=== PATIENT | male | born 1970 | race Caucasian/White ===

== ENCOUNTER 2019-06-12 13:41 | Emergency (ER) | payer OTHER ==
[2019-06-12 13:56] VITALS: BP 156/102; PULSE 93; RESP 18; TEMP 97.6
[2019-06-12] MEDS ORDERED: PENICILLIN VK 500MG STARTER 4 TAB BTL PO STA (14:24)
--- NOTE | 2019-06-12 14:25 | ED ---
ENT HPI - General Chief complaint: Dental/Oral Stated complaint: patient states sinus issues Time Seen by Provider: 06/12/19 14:04 Source: patient Mode of arrival: ambulatory Limitations: no limitations - History of Present Illness Initial comments: 48-year-old male presenting today for chief complaint of bad breath, felt taste in mouth x 1 week. Patient states that he has poor dentition overall is attempting to find a dentist, patient took a month ago he had an abscess is placed on antibiotics. He states he eventually had the tooth extracted he st ates he does not pain in the tooth any longer. Recently the taste in his mouth is without breath appear similar to when he had a previous abscess. Patient denies a swelling below tongue of the neck doesn't difficulty breathing swelling fevers or general malaise. Patient states he was concerned he was developing infection and thus prsented to the ER, patient states he is also concerned may be at the odor is coming from his sinuses. Patient denies any sinus pain or pressure he states he has mild congestion. Patient states that he just was released from skilled nursing. ROS (-). Upon arrival patient appears well there is no signs of acute distress. BP elevated patient states he has medications, denies chest pain, SOB. - Related Data Previous Rx's Medication Instructions Recorded Penicillin V Potassium [Pen Vee K] 500 mg PO QID 7 Days #28 tablet 06/12/19 Allergies Allergy/AdvReac Type Severity Reaction Status Date / Time No Known Allergies Allergy Verified 06/12/19 13:56 Review of Systems ROS Statement: Those systems with pertinent positive or pertinent negative responses have been documented in the HPI. ROS Other: All systems not noted in ROS Statement are negative. Past Medical History Past Medical History: GERD/Reflux, Hyperlipidemia, Hypertension History of Any Multi-Drug Resistant Organisms: None Reported Past Surgical History: No Surgical Hx Reported Past Psychological History: Anxiety, Bipolar, Depression Smoking Status: Current some day smoker Past Alcohol Use History: None Reported Past Drug Use History: None Reported General Exam - General Exam Comments Initial Comments: General: The patient is awake and alert, in no distress, and does not appear acutely ill. Eye: +3 mm pupils are equal, round and reactive to light, extra-ocular m ovements are intact. No nystagmus. There is normal conjunctiva bilaterally. No signs of icterus. Ears, nose, mouth and throat: There are moist mucous membranes and no oral lesions. Patient's teeth are carious there is multiple missing teeth. She has healed area where it appears that tooth number 31 is, no dry socket, no pain to palpation, no area of fluctuance. No swelling below the tongue, or below the angle of the mandible. No trismus, tripoding or drooling Neck: The neck is supple, there is no tenderness or JVD. Musculoskeletal: Normal ROM, no tenderness. Strength 5/5. Sensation intact. Radial pulses equal bilaterally 2+. Neurological: A&O x 3. CN II-XII intact grossly, There are no obvious motor or sensory deficits. Coordination appears grossly intact. Speech is normal. Skin: Skin is warm and dry and no rashes or lesions are noted. Psychiatric: Cooperative, appropriate mood & affect, normal judgment. Limitations: no limitations Course Vital Signs 06/12/19 13:53 Temperature 97.6 F Pulse Rate 93 Respiratory 18 Rate Blood Pressure 156/102 O2 Sat by Pulse 97 Oximetry Medical Decision Making - Medical Decision Making 48-year-old male presents today for chief complaint of bad breath. Patient states that similar to when he had abscess to the past. Patient denies noting any specific areas where he feels an abscess or dental pain. Physical examination unremarkable aside from poor dentition overall with multiple carious teeth. No evidence of focalized abscess or tenderness. Percussion of specific tooth. Patient has no signs of Bobby angina he appears well without any other focalizing symptoms. Patient blood pressure noted to be elevated patient states he currently has blood pressure medication and has been stressed out he denies any chest pain shortness of breath like swelling decreased urine output headache dizziness or abdomina/back pain. At this time of discharge patient with Pen VK given history provider/poor dentition and dentist F/u. Patient is agreeable to this care plan discharge at this time discussed case with attending provider Dr. Ventura Disposition Clinical Impression: Bad breath, Dental caries Disposition: HOME SELF-CARE Condition: Good Instructions (If sedation given, give patient instructions): Toothache (ED) Additional Instructions: Please use medication as discussed. Please follow-up with family doctor in the next 2 days, recommend evaluation by a dentist. Please return to emergency room if the symptoms increase or worsen or for any other concerns. Prescriptions: Penicillin V Potassium [Pen Vee K] 500 mg PO QID 7 Days #28 tablet Is patient prescribed a controlled substance at d/c from ED?: No Referrals: None,Stated [Primary Care Provider] - 1-2 days Time of Disposition: 14:25
== END 2019-06-12 15:06 | disposition home or self-care (01) ==
LOC: EC 13:41
DX: K02.9 Dental caries, unspecified (principal); K00.7 Teething syndrome; I10 Essential (primary) hypertension; F17.200 Nicotine dependence, unspecified, uncomplicated
CPT/HCPCS: 99283

== ENCOUNTER 2020-09-13 12:19 | Inpatient (IN) | payer OTHER ==
--- NOTE | 2020-09-13 12:54 | ED ---
General Adult HPI - General Chief complaint: Chest Pain Stated complaint: Chest Pain/SOB Time Seen by Provider: 09/13/20 12:30 Source: patient, RN notes reviewed, old records reviewed Mode of arrival: wheelchair Limitations: no limitations - History of Present Illness Initial comments: This is a 50-year-old male with a past medical history significant for smoking high blood pressure and high cholesterol. Patient states she's had no cardiac history that he knows of. Patient denies any diabetes. Patient states the last 2-1/2 days she's had chest pain left-sided chest and he has also been significantly short of breath per patient states breathing does not seem to make the pain worse just been a constant discomfort. Patient states he also thinks he might a little upper abdominal pain but is not sure if that she is because his breathing somewhat harder than normal. Patient denies any fever chills or cough. Patient denies any vomiting or diarrhea. Patient denies any swelling to the legs or calf tenderness. - Related Data Previous Rx's Medication Instructions Recorded Penicillin V Potassium [Pen Vee K] 500 mg PO QID 7 Days #28 tablet 06/12/19 Allergies Allergy/AdvReac Type Severity Reaction Status Date / Time No Known Allergies Allergy Verified 09/13/20 12:33 Review of Systems ROS Statement: Those systems with pertinent positive or pertinent negative responses have been documented in the HPI. ROS Other: All systems not noted in ROS Statement are negative. Past Medical History Past Medical History: GERD/Reflux, Hyperlipidemia, Hypertension History of Any Multi-Drug Resistant Organisms: None Reported Past Surgical History: No Surgical Hx Reported Past Psychological History: Anxiety, Bipolar, Depression Smoking Status: Current every day smoker Past Alcohol Use History: None Reported Past Drug Use History: None Reported General Exam - General Exam Comments Initial Comments: GENERAL: Patient is well-developed and well-nourished. Patient is nontoxic and well- hydrated and is in mild distress. ENT: Neck is soft and supple. No significant lymphadenopathy is noted. Oropharynx is clear. Moist mucous membranes. Neck has full range of motion without eliciting any pain. EYES: The sclera were anicteric and conjunctiva were pink and moist. Extraocular movements were intact and pupils were equal round and reactive to light. Eyelids were unremarkable. PULMONARY: Unlabored respirations. Good breath sounds bilaterally. No audible rales rhonchi or wheezing was noted. CARDIOVASCULAR: There is a regular rate and rhythm without any murmurs gallops or rubs. No rashes or areas of tenderness be palpated ABDOMEN: Soft and nontender with normal bowel sounds. SKIN: Skin is clear with no lesions or rashes and otherwise unremarkable. NEUROLOGIC: Patient is alert and oriented x3. Cranial nerves II through XII are grossly intact. Motor and sensory are also intact. Normal speech, volume and content. Symmetrical smile. MUSCULOSKELETAL: Normal extremities with adequate strength and full range of motion. No lower extremity swelling or edema. No calf tenderness. LYMPHATICS: No significant lymphadenopathy is noted PSYCHIATRIC: Normal psychiatric evaluation. Limitations: no limitations Course Vital Signs 09/13/20 09/13/20 12:29 14:02 Temperature 97.9 F Pulse Rate 94 90 Respiratory 24 24 Rate Blood Pressure 144/101 143/107 O2 Sat by Pulse 97 99 Oximetry Medical Decision Making - Medical Decision Making EKG shows normal sinus rhythm at 80 bpm NV interval is 150 QRS is 90 QT interval 418 QTC is 505. Patient's EKG shows no ST segment elevation or depression. Chest x-ray shows acute pulmonary edema. I went back in and reevaluated the patient and asked about drug use he did admit to doing methamphetamine. Patient's d-dimer is elevated so I ordered a CAT scan of his chest. I spoke with Dr. Rick he agreed to admit the patient admitted the patient wrote admitting orders. - Lab Data Result diagrams: 09/13/20 12:59 09/13/20 12:59 Lab Results 09/13/20 09/13/20 09/13/20 Range/Units 12:59 12:59 12:59 WBC 11.0 H (3.8-10.6) k/uL RBC 5.00 (4.30-5.90) m/uL Hgb 15.5 (13.0-17.5) gm/dL Hct 45.2 (39.0-53.0) % MCV 90.4 (80.0-100.0) fL MCH 31.0 (25.0-35.0) pg MCHC 34.3 (31.0-37.0) g/dL RDW 13.7 (11.5-15.5) % Plt Count 345 (150-450) k/uL MPV 7.1 Neutrophils % 67 % Lymphocytes % 24 % Monocytes % 4 % Eosinophils % 3 % Basophils % 1 % Neutrophils # 7.3 (1.3-7.7) k/uL Lymphocytes # 2.7 (1.0-4.8) k/uL Monocytes # 0.5 (0-1.0) k/uL Eosinophils # 0.3 (0-0.7) k/uL Basophils # 0.1 (0-0.2) k/uL PT 9.9 (9.0-12.0) sec INR 0.9 (<1.2) APTT 23.4 (22.0-30.0) sec D-Dimer 0.97 H (<0.60) mg/L FEU Sodium 137 (137-145) mmol/L Potassium 4.9 (3.5-5.1) mmol/L Chloride 111 H (98-107) mmol/L Carbon Dioxide 18 L (22-30) mmol/L Anion Gap 8 mmol/L BUN 15 (9-20) mg/dL Creatinine 0.72 (0.66-1.25) mg/dL Est GFR (CKD-EPI)AfAm >90 (>60 ml/min/1.73 sqM) Est GFR (CKD-EPI)NonAf >90 (>60 ml/min/1.73 sqM) Glucose 129 H (74-99) mg/dL Plasma Lactic Acid Chavo (0.7-2.0) mmol/L Calcium 8.6 (8.4-10.2) mg/dL Magnesium 1.9 (1.6-2.3) mg/dL Total Bilirubin 0.5 (0.2-1.3) mg/dL AST 31 (17-59) U/L ALT 40 (4-49) U/L Alkaline Phosphatase 51 (38-126) U/L Troponin I (0.000-0.034) ng/mL NT-Pro-B Natriuret Pep pg/mL Total Protein 6.4 (6.3-8.2) g/dL Albumin 3.6 (3.5-5.0) g/dL Lipase 163 (23-300) U/L 09/13/20 09/13/20 09/13/20 Range/Units 12:59 12:59 12:59 WBC (3.8-10.6) k/uL RBC (4.30-5.90) m/uL Hgb (13.0-17.5) gm/dL Hct (39.0-53.0) % MCV (80.0-100.0) fL MCH (25.0-35.0) pg MCHC (31.0-37.0) g/dL RDW (11.5-15.5) % Plt Count (150-450) k/uL MPV Neutrophils % % Lymphocytes % % Monocytes % % Eosinophils % % Basophils % % Neutrophils # (1.3-7.7) k/uL Lymphocytes # (1.0-4.8) k/uL Monocytes # (0-1.0) k/uL Eosinophils # (0-0.7) k/uL Basophils # (0-0.2) k/uL PT (9.0-12.0) sec INR (<1.2) APTT (22.0-30.0) sec D-Dimer (<0.60) mg/L FEU Sodium (137-145) mmol/L Potassium (3.5-5.1) mmol/L Chloride (98-107) mmol/L Carbon Dioxide (22-30) mmol/L Anion Gap mmol/L BUN (9-20) mg/dL Creatinine (0.66-1.25) mg/dL Est GFR (CKD-EPI)AfAm (>60 ml/min/1.73 sqM) Est GFR (CKD-EPI)NonAf (>60 ml/min/1.73 sqM) Glucose (74-99) mg/dL Plasma Lactic Acid Chavo 1.3 (0.7-2.0) mmol/L Calcium (8.4-10.2) mg/dL Magnesium (1.6-2.3) mg/dL Total Bilirubin (0.2-1.3) mg/dL AST (17-59) U/L ALT (4-49) U/L Alkaline Phosphatase (38-126) U/L Troponin I <0.012 (0.000-0.034) ng/mL NT-Pro-B Natriuret Pep 4810 pg/mL Total Protein (6.3-8.2) g/dL Albumin (3.5-5.0) g/dL Lipase (23-300) U/L Critical Care Time Critical Care Time: Yes Total Critical Care Time: 35 Disposition Clinical Impression: Acute pulmonary edema, Methamphetamine abuse Disposition: ADMITTED IP TO THIS HOSP Referrals: Tom An MD [Primary Care Provider] - 1-2 days Time of Disposition: 14:25
[2020-09-13 13:10] LABS: Basophils # (A) 0.1 k/uL (0-0.2); Basophils % (A) 1 %; Eosinophils # (A) 0.3 k/uL (0-0.7); Eosinophils % (A) 3 %; HCT 45.2 % (39.0-53.0); HGB 15.5 gm/dL (13.0-17.5); Lymphocytes # (A) 2.7 k/uL (1.0-4.8); Lymphocytes % (A) 24 %; MCHC 34.3 g/dL (31.0-37.0); MCV 90.4 fL (80.0-100.0); Mean Platelet Volume 7.1; Monocytes # (A) 0.5 k/uL (0-1.0); Monocytes % (A) 4 %; Neutrophils # (A) 7.3 k/uL (1.3-7.7); Neutrophils % (A) 67 %; Platelet Count 345 k/uL (150-450); RDW 13.7 % (11.5-15.5)
[2020-09-13 13:23] LABS: African American GFR (CKD) >90 (>60 ml/min/1.73 sqM); Albumin 3.6 g/dL (3.5-5.0); Anion Gap 8 mmol/L; Carbon Dioxide 18 mmol/L (22-30); Chloride 111 mmol/L (98-107); Glucose 129 mg/dL (74-99); INR 0.9 (<1.2); Non-African American GFR(CKD) >90 (>60 ml/min/1.73 sqM); Partial Thromboplastin Time 23.4 sec (22.0-30.0); Prothrombin Time 9.9 sec (9.0-12.0); Sodium 137 mmol/L (137-145); Total Protein 6.4 g/dL (6.3-8.2)
[2020-09-13 13:24] LABS: ALT 40 U/L (4-49); Blood Urea Nitrogen 15 mg/dL (9-20); Calcium 8.6 mg/dL (8.4-10.2); Lipase 163 U/L (23-300); Total Bilirubin 0.5 mg/dL (0.2-1.3)
[2020-09-13 13:26] LABS: AST 31 U/L (17-59); Alkaline Phosphatase 51 U/L (38-126); Magnesium 1.9 mg/dL (1.6-2.3); Potassium 4.9 mmol/L (3.5-5.1)
[2020-09-13 13:36] LABS: D-Dimer 0.97 mg/L FEU (<0.60)
--- NOTE | 2020-09-13 13:41 | XR ---
EXAMINATION TYPE: XR chest 2V DATE OF EXAM: 09/13/2020 COMPARISON: Chest x-ray January 22, 2016 HISTORY: Shortness of breath TECHNIQUE: Frontal and lateral views of the chest are obtained. FINDINGS: The cardiac silhouette size is stable and upper limits of normal. New mild interstitial ed valentina. New central vascular congestion. New tiny bilateral pleural effusions. The osseous structures r emain intact. IMPRESSION: Findings consistent with CHF exacerbation and/or fluid overload state as detailed above.
[2020-09-13] MEDS ORDERED: FUROSEMIDE 10 MG/ML 4 ML VIAL IV STA (14:17)
[2020-09-13] MEDS ORDERED: NITROGLYCERIN OINT 1 INCH/GM PACKET TOPICAL STA (14:17)
[2020-09-13] MEDS: FUROSEMIDE 10 MG/ML 4 ML VIAL IV SCH ×2 (14:46→22:27)
--- NOTE | 2020-09-13 15:07 | CT ---
EXAMINATION TYPE: CT chest angio for PE DATE OF EXAM: 09/13/2020 COMPARISON: Same-day radiograph. HISTORY: PE suspected, elevated d-dimer CT DLP: 476.5 mGycm Automated exposure control for dose reduction was used. CONTRAST: CT Chest for pulmonary embolism performed with without and with IV Contrast, patient injected with 10 0 ml mL of Isovue 370. FINDINGS: LUNGS: There are mild to moderate patchy opacities in the bilateral lower lobes, otherwise minimal in volvement elsewhere. There are moderate bilateral pleural effusions. There is also mild interseptal t hickening, compatible with interstitial edema. No pneumothorax. The tracheobronchial tree is patent . MEDIASTINUM: There is satisfactory enhancement of the pulmonary artery and its branches, there is no CT evidence for pulmonary embolism. There are no greater than 1 cm hilar or mediastinal lymph nodes. No pericardial effusion is seen. Mild cardiomegaly. OTHER: No additional significant abnormality is seen. IMPRESSION: No acute PE. Mild to moderate patchy opacities predominantly in the bilateral frontal lobes and concerning for aty pical pneumonia. Moderate pleural effusions on the background of CHF.
[2020-09-13 15:27] LABS: Cocaine Screen,Urine Detected (NotDetected); Phencyclidine Screen,Urine Not Detected (NotDetected); Urn Cannabinoid Scrn Not Detected (NotDetected)
[2020-09-13 15:28] LABS: Amphetamine Screen,Urine Detected (NotDetected); Barbiturate Screen,Urine Not Detected (NotDetected); Benzodiazepines Screen,Urine Not Detected (NotDetected); Methadone Screen, Urine Not Detected (NotDetected); Opiate Screen,Urine Not Detected (NotDetected); Oxycodone Screen, Urine Not Detected (NotDetected); Tricyclic Antidepressant,Urine Not Detected (NotDetected)
[2020-09-13] MEDS ORDERED: IBUPROFEN 600 MG TAB PO PRN (18:47)
[2020-09-13] MEDS: NITROGLYCERIN OINT 1 INCH/GM PACKET TOPICAL SCH (18:47)
--- NOTE | 2020-09-13 22:15 | P.HPIM ---
History of Present Illness H&P Date: 09/13/20 Chief Complaint: short of breath History of presenting complaint: This is a pleasant [address] An. Chronic stable medical conditions include GERD, hypertension, hyperlipidemia. For a few days patient has been noting Zerit been getting short of breath. Also complains of some chest pressure. Middle of the chest going out of the left side of the chest fall. Associate with some perspiration and tiredness. As symptoms were getting worse patient decided to come in. No prior cardiac history. Review of systems: GEN.: Tired EYES: None HEENT: None NECK: None RESPIRATORY: As above CARDIOVASCULAR: As above GASTROINTESTINAL: None GENITOURINARY: None MUSCULOSKELETAL: None LYMPHATICS: None HEMATOLOGICAL: None PSYCHIATRY: None NEUROLOGICAL: None Past medical history to include: GERD, hypertension, hyperlipidemia, bipolar disorder Social history: Lives with 2 friends. Smokes half a pack a day for long time. Did cy before. No alcohol. Physical examination: VITAL SIGNS: 98.1, 99, 20, 126/82, 94% on room air GENERAL: BMI 29.1, laying in bed, awake. EYES: Pupils equal. Conjunctiva normal. HEENT: External appearance of nose and ears normal, oral cavity grossly normal. NECK: JVD not raised; masses not palpable. HEART: First and second heart sounds are normal; no edema. LUNGS: Respiratory rate normal; clear to auscultation. ABDOMEN: Soft, nontender, liver spleen not palpable, no masses palpable. PSYCH: [Alert and oriented x3; mood and affect anxious l. NEUROLOGICAL: Cranial nerves grossly intact; no facial asymmetry, power and sensation grossly intact. LYMPHATICS: No lymph nodes palpable in the axilla and neck INVESTIGATIONS, reviewed in the clinical context: WBC 11 hemoglobin 15.5 platelets 345 potassium 4.9 creatinine 0.7 to ProBNP 4810 Urine drug screen positive for amphetamines, methamphetamines, cocaine Coronavirus [PCL] not detected EKG tracing personally reviewed by me-normal sinus rhythm, prolonged QT Chest x-ray film: Interstitial prominence Computed tomography scan chest and U for PE protocol: No PE. Mild to moderate patchy opacities predominantly to bilateral frontal lobes, moderate pleural effu charity Assessment and plan: -Acute congestive heart failure exacerbation IV Lasix. 2-D echocardiogram. Follow BNP -GERD Pepcid -Hyperlipidemia Continue Lipitor -Essential hypertension On Toprol-XL -Chronic Coumadin dependency smoker Nicotine patch -Urine drug screen positive for amphetamines, methamphetamines, cocaine We will address this with the patient Patient admitted to telemetry. 2-D echocardiogram. IV Lasix. Cartilage he consulted. Nicotine patch. Past Medical History Past Medical History: GERD/Reflux, Hyperlipidemia, Hypertension History of Any Multi-Drug Resistant Organisms: None Reported Past Surgical History: Hernia Repair Past Anesthesia/Blood Transfusion Reactions: No Reported Reaction Smoking Status: Current every day smoker - Past Family History Mother Family Medical History: Congestive Heart Failure (CHF) Medications and Allergies Home Medications Medication Instructions Recorded Confirmed Type Atorvastatin [Lipitor] 20 mg PO DAILY 09/13/20 09/13/20 History Ibuprofen [Motrin] 600 mg PO Q8HR PRN 09/13/20 09/13/20 History Metoprolol Succinate [Toprol XL] 50 mg PO DAILY 09/13/20 09/13/20 History Allergies Allergy/AdvReac Type Severity Reaction Status Date / Time No Known Allergies Allergy Verified 09/13/20 15:08 Physical Exam Vitals: Vital Signs Temp Pulse Pulse Resp BP BP Pulse Ox 09/13/20 17:53 98.1 F 99 20 126/82 94 L 09/13/20 17:09 98.6 F 98 20 151/105 96 09/13/20 16:24 96 22 143/109 98 09/13/20 15:16 81 24 151/111 98 09/13/20 14:02 90 24 143/107 99 09/13/20 12:29 97.9 F 94 24 144/101 97 Intake and Output 09/13/20 09/13/20 09/13/20 06:59 14:59 22:59 Intake Total 240 Output Total 1050 Balance -810 Intake: Oral 240 Output: Urine 1050 Other: Weight 81.647 kg 81.647 kg Results CBC & Chem 7: 09/13/20 12:59 09/13/20 12:59 Labs: Abnormal Lab Results - Last 24 Hours (Table) 09/13/20 09/13/20 09/13/20 Range/Units 12:59 12:59 12:59 WBC 11.0 H (3.8-10.6) k/uL D-Dimer 0.97 H (<0.60) mg/L FEU Chloride 111 H (98-107) mmol/L Carbon Dioxide 18 L (22-30) mmol/L Glucose 129 H (74-99) mg/dL Ur Amphetamines Screen (NotDetected) U Methamphetamines Scrn (NotDetected) Urine Cocaine Screen (NotDetected) 09/13/20 Range/Units 14:45 WBC (3.8-10.6) k/uL D-Dimer (<0.60) mg/L FEU Chloride (98-107) mmol/L Carbon Dioxide (22-30) mmol/L Glucose (74-99) mg/dL Ur Amphetamines Screen Detected H (NotDetected) U Methamphetamines Scrn Detected H (NotDetected) Urine Cocaine Screen Detected H (NotDetected) Thrombosis Risk Factor Assmnt - Choose All That Apply Each Factor Represents 1 point: Age 41-60 years, Heart failure (<1month) Thrombosis Risk Factor Assessment Total Risk Factor Score: 2 Thrombosis Risk Factor Assessment Level: Low Risk
[2020-09-13] MEDS: ENOXAPARIN 40 MG/0.4 ML SYRINGE SQ SCH (22:27)
[2020-09-14] MEDS: NITROGLYCERIN OINT 1 INCH/GM PACKET TOPICAL SCH (03:37)
[2020-09-14] MEDS: FUROSEMIDE 10 MG/ML 4 ML VIAL IV SCH ×3 (07:33→23:33)
[2020-09-14 08:18] LABS: African American GFR (CKD) >90 (>60 ml/min/1.73 sqM); Anion Gap 10 mmol/L; Blood Urea Nitrogen 15 mg/dL (9-20); Calcium 9.1 mg/dL (8.4-10.2); Carbon Dioxide 23 mmol/L (22-30); Chloride 107 mmol/L (98-107); Glucose 111 mg/dL (74-99); Non-African American GFR(CKD) >90 (>60 ml/min/1.73 sqM); Potassium 4.2 mmol/L (3.5-5.1); Sodium 140 mmol/L (137-145)
[2020-09-14] MEDS: ATORVASTATIN 20 MG TAB PO SCH (08:19)
[2020-09-14] MEDS: METOPROLOL SUCCINATE (ER) 50 MG TAB.ER.24H PO SCH (08:19)
--- NOTE | 2020-09-14 11:16 | P.CRDCN ---
History of Present Illness Consult date: 09/14/20 History of present illness: HISTORY OF PRESENT ILLNESS: This is a 50-year-old male with a past medical history significant for hypertension, hyperlipidemia, nicotine dependence, anxiety, depression, bipolar disorder, methamphetamine use, and cocaine use. Patient does not follow with a hall cleaner. We have been asked to see the patient in consultation for acute pulmonary edema. Patient examined at the bedside. Patient states he has been feeling short of breath for the past week. 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 He states over the past couple days the shortness of breath has been constant. He denies chest pain or pressure. Patient reports using methamphetamine and cocaine 3 days ago. He states he used to this because he was so short of breath and had to go to work so he said he used drugs so he could work without noticing he was short of breath. Patient also reports smoking 1 pack per day. He denies any previous cardiac history. Patient was found to be in congestive heart failure and was started on IV Lasix in the emergency room. At the time of examination this morning, the patient denies any shortness of breath. EKG reveals sinus mechanism without signs of acute ischemia. QT prolongation. Chest xray findings consistent with CHF exacerbation and/or fluid overload state. Chest CTA: Negative for pulmonary, some. Mild to moderate patchy opacities predominantly in the bilateral frontal lobes concerning for atypical pneumonia. Moderate pleural effusions on background of CHF. Laboratory data: WBC 11.0. Hemoglobin 15.5. Platelet count 345. D-dimer 0.97. Sodium 140. Potassium 4.2. BUN 15. Creatinine 0.93. Troponin negative 1. BNP 4810. Toxicology screen positive for amphetamines, methamphetamines, and cocaine. Current home cardiac medications include metoprolol succinate 50 mg daily and Lipitor 20 mg daily REVIEW OF SYSTEMS: At the time of my exam: CONSTITUTIONAL: Denies fever or chills. HEENT: Denies blurred vision, vision changes, or eye pain. Denies hemoptysis CARDIOVASCULAR: Denies chest pain. Denies orthopnea. Denies PND. Denies palpitations RESPIRATORY: Denies shortness of breath. GASTROINTESTINAL: Denies abdominal pain. Denies nausea or vomiting. HEMATOLOGIC: Denies bleeding disorders. GENITOURINARY: Denies any blood in urine. SKIN: Denies pruitis. Denies rash. PHYSICAL EXAM: VITAL SIGNS: Reviewed. GENERAL: Well-developed in no acute distress. HEENT: Head is normocephalic. Pupils are equal, round. Sclerae anicteric. Mucous membranes of the mouth are moist. Neck supple. No JVD or thyromegaly LUNGS: Respirations even and unlabored. Lungs essentially clear to auscultation bilaterally. HEART: Regular rate and rhythm. S1 and S2 heard. ABDOMEN: Soft. Nondistended. Nontender. EXTREMITIES: Normal range of motion. No clubbing or cyanosis. Peripheral pulses intact. No lower extremity edema NEUROLOGIC: Awake and alert. Oriented x 3. ASSESSMENT: New-onset heart failure, type unknown, echo pending Hypertension Hyperlipidemia QT prolongation, secondary to methamphetamine use Nicotine dependence Methamphetamine use Cocaine use Anxiety Bipolar Depression PLAN: Obtain 2-D echo to assess cardiac structure and function Resume home medications including metoprolol and Lipitor Continue IV Lasix Monitor kidney function Accurate I&O Daily weights Smoking cessation recommended Recommend abstinence from cocaine and methamphetamines Further recommendations pending patient course Nurse practitioner note has been reviewed by physician. Signing provider agrees with the documented findings, assessment, and plan of care. Past Medical History Past Medical History: GERD/Reflux, Hyperlipidemia, Hypertension History of Any Multi-Drug Resistant Organisms: None Reported Past Surgical History: Hernia Repair Past Anesthesia/Blood Transfusion Reactions: No Reported Reaction Smoking Status: Current every day smoker - Past Family History Mother Family Medical History: Congestive Heart Failure (CHF) Medications and Allergies Home Medications Medication Instructions Recorded Confirmed Type Atorvastatin [Lipitor] 20 mg PO DAILY 09/13/20 09/13/20 History Ibuprofen [Motrin] 600 mg PO Q8HR PRN 09/13/20 09/13/20 History Metoprolol Succinate [Toprol XL] 50 mg PO DAILY 09/13/20 09/13/20 History Allergies Allergy/AdvReac Type Severity Reaction Status Date / Time No Known Allergies Allergy Verified 09/13/20 15:08 Physical Exam Vitals: Vital Signs Temp Pulse Pulse Resp BP BP Pulse Ox 09/14/20 08:15 97.9 F 88 18 139/101 95 09/14/20 03:31 97.8 F 101 H 17 145/97 97 09/14/20 02:00 94 19 09/14/20 00:00 98.2 F 94 18 140/103 95 09/13/20 20:00 98.3 F 99 16 152/87 94 L 09/13/20 17:53 98.1 F 99 20 126/82 94 L 09/13/20 17:09 98.6 F 98 20 151/105 96 09/13/20 16:24 96 22 143/109 98 09/13/20 15:16 81 24 151/111 98 09/13/20 14:02 90 24 143/107 99 09/13/20 12:29 97.9 F 94 24 144/101 97 Intake and Output 09/13/20 09/14/20 09/14/20 22:59 06:59 14:59 Intake Total 240 240 Output Total 1050 1999 Balance -810 -1999 240 Intake: Oral 240 240 Output: Urine 1049 1999 Other: Voiding Method Urinal Urinal Weight 81.647 kg 83.5 kg Results 09/13/20 12:59 09/14/20 06:13 Cardiac Enzymes 09/13/20 09/13/20 Range/Units 12:59 12:59 AST 31 (17-59) U/L Troponin I <0.012 (0.000-0.034) ng/mL Coagulation 09/13/20 Range/Units 12:59 PT 9.9 (9.0-12.0) sec APTT 23.4 (22.0-30.0) sec CBC 09/13/20 Range/Units 12:59 WBC 11.0 H (3.8-10.6) k/uL RBC 5.00 (4.30-5.90) m/uL Hgb 15.5 (13.0-17.5) gm/dL Hct 45.2 (39.0-53.0) % Plt Count 345 (150-450) k/uL Comprehensive Metabolic Panel 09/13/20 09/14/20 Range/Units 12:59 06:13 Sodium 137 140 (137-145) mmol/L Potassium 4.9 4.2 (3.5-5.1) mmol/L Chloride 111 H 107 (98-107) mmol/L Carbon Dioxide 18 L 23 (22-30) mmol/L BUN 15 15 (9-20) mg/dL Creatinine 0.72 0.93 (0.66-1.25) mg/dL Glucose 129 H 111 H (74-99) mg/dL Calcium 8.6 9.1 (8.4-10.2) mg/dL AST 31 (17-59) U/L ALT 40 (4-49) U/L Alkaline Phosphatase 51 (38-126) U/L Total Protein 6.4 (6.3-8.2) g/dL Albumin 3.6 (3.5-5.0) g/dL Current Medications Generic Name Dose Route Start Last Admin Trade Name Freq PRN Reason Stop Dose Admin Atorvastatin Calcium 20 mg 09/14/20 09:00 09/14/20 08:19 Atorvastatin 20 Mg Tab PO 20 mg DAILY SMITHA Administration Enoxaparin Sodium 40 mg 09/13/20 22:30 09/13/20 22:27 Enoxaparin 40 Mg/0.4 Ml Syringe SQ 40 mg DAILY@2100 SMITHA Administration Furosemide 40 mg 09/13/20 23:00 09/14/20 07:33 Furosemide 10 Mg/Ml 4 Ml Vial IV 40 mg Q8H SMITHA Administration Ibuprofen 600 mg 09/13/20 18:47 Ibuprofen 600 Mg Tab PO Q8HR PRN Pain Metoprolol Succinate 50 mg 09/14/20 09:00 09/14/20 08:19 Metoprolol Succinate (Er) 50 Mg Tab.Er.24h PO 50 mg DAILY SMITHA Administration Intake and Output 09/13/20 09/14/20 09/14/20 22:59 06:59 14:59 Intake Total 240 240 Output Total 1050 1999 Balance -810 -1999 240 Intake: Oral 240 240 Output: Urine [id number] Other: Voiding Method Urinal Urinal Weight 81.647 kg 83.5 kg 09/13/20 12:59 09/14/20 06:13
[2020-09-14 13:58] VITALS: BMI 29.7
--- NOTE | 2020-09-14 16:50 | ECHOF ---
Referral Reason:Acute pulmonary edema MEASUREMENTS -------- HEIGHT: 165.1 cm WEIGHT: 83.5 kg BP: 145/97 IVSd: 1.1 cm (0.6 - 1.1) LVIDd: 5.7 cm (3.9 - 5.3) LVPWd: 1.3 cm (0.6 - 1.1) EDV(Teich): 158 ml IVSs: 1.2 cm LVIDs: 5.0 cm LVPWs: 1.3 cm %IVS Thck: 9 % ESV(Teich): 120 ml EF(Teich): 24 % %FS: 11 % SV(Teich): 38 ml LA Diam: 4.4 cm (2.7 - 3.8) RVIDd: 3.1 cm (< 3.3) LALs A4C: 6.1 cm LAAs A4C: 21.7 cm LAESV A-L A4C: 66 ml LAESV MOD A4C: 62 ml LALs A2C: 6.3 cm LAAs A2C: 26.3 cm LAESV A-L A2C: 92 ml LAESV MOD A2C: 88 ml LAESV(A-L): 80 ml LAESV Index (A-L): 41.77 ml/m Ao Diam: 3.3 cm (2.0 - 3.7) AV Cusp: 1.3 cm (1.5 - 2.6) EPSS: 1.9 cm MV E Russel: 0.72 m/s MV DecT: 144 ms MV Dec Lycoming: 5.0 m/s MV A Russel: 0.53 m/s MV E/A Ratio: 1.36 MV PHT: 42 ms TR Vmax: 2.60 m/s TR maxP.02 mmHg RAP: 5.00 mmHg RVSP: 32.02 mmHg MV EF SLOPE: 131.04 mm/s (70 - 150) MV EXCURSION: 20.13 mm (> 18.000) FINDINGS -------- Sinus rhythm. This was a technically good study. The left ventricular size is normal. Left ventricular wall thickness is normal. There is moderate global hypokinesis of LV . Overall left ventricular systolic function is severely impaired with, a n EF between 20 - 25 %. The right ventricle is normal in size. LA is severely dilated >40 ml/m2 The right atrial size is normal. Trace amount of aortic regurgitation. Mild mitral regurgitation is present. Mild tricuspid regurgitation present. Right ventricular systolic pressure is normal at < 35 mmHg. Trace/mild (physiologic) pulmonic regurgitation. There is no pericardial effusion. CONCLUSIONS -------- 1. The left ventricular size is normal. 2. Left ventricular wall thickness is normal. 3. There is moderate global hypokinesis of LV . 4. Overall left ventricular systolic function is severely impaired with, an EF between 20 - 25 %. 5. The right ventricle is normal in size. 6. LA is severely dilated >40 ml/m2 7. The right atrial size is normal. 8. Trace amount of aortic regurgitation. 9. Mild mitral regurgitation is present. 10. Mild tricuspid regurgitation present. 11. Trace/mild (physiologic) pulmonic regurgitation. 12. There is no pericardial effusion. COMPUTER SYSTEMS SECURITY ADMINISTRATOR: Delmi Guaman RDCS
--- NOTE | 2020-09-14 17:08 | P.PN ---
Progress Note - Text Progress Note Date: 09/14/20 Chief Complaint: short of breath History of presenting complaint: This is a pleasant [address] An. Chronic stable medical conditions include GERD, hypertension, hyperlipidemia. For a few days patient has been noting Zerit been getting short of breath. Also complains of some chest pressure. Middle of the chest going out of the left side of the chest fall. Associate with some perspiration and tiredness. As symptoms were getting worse patient decided to come in. No prior cardiac history. Admitted with CHF exacerbation. Started on IV Lasix. Today: Laying in bed. Breathing a bit better. No cough. Oral intake better. Review of systems: Was done for constitutional, cardiovascular, GI, pulmonary. relevant finding as above Active Medications Atorvastatin Calcium (Atorvastatin 20 Mg Tab) 20 mg PO DAILY [facility] Last Admin: 09/14/20 08:19 Dose: 20 mg Documented by: Enoxaparin Sodium (Enoxaparin 40 Mg/0.4 Ml Syringe) 40 mg SQ DAILY@2100 [facility] Last Admin: 09/13/20 22:27 Dose: 40 mg Documented by: Furosemide (Furosemide 10 Mg/Ml 4 Ml Vial) 40 mg IV Q8H [facility] Last Admin: 09/14/20 16:46 Dose: 40 mg Documented by: Ibuprofen (Ibuprofen 600 Mg Tab) 600 mg PO Q8HR PRN PRN Reason: Pain Metoprolol Succinate (Metoprolol Succinate (Er) 50 Mg Tab.Er.24h) 50 mg PO DAILY [facility] Last Admin: 09/14/20 08:19 Dose: 50 mg Documented by: Past medical history to include: GERD, hypertension, hyperlipidemia, bipolar disorder Social history: Lives with 2 friends. Smokes half a pack a day for long time. Did cy before. No alcohol. Physical examination: VITAL SIGNS: 97.9, 91, 16, 134/92, 94% room air GENERAL: BMI 29.1, reclining in bed, looking better EYES: Pupils equal. Conjunctiva normal. HEENT: External appearance of nose and ears normal, oral cavity grossly normal. NECK: JVD not raised; masses not palpable. HEART: First and second heart sounds are normal; no edema. LUNGS: Respiratory rate normal; clear to auscultation. ABDOMEN: Soft, nontender, liver spleen not palpable, no masses palpable. PSYCH: [Alert and oriented x3; mood and affect anxious l. NEUROLOGICAL: Cranial nerves grossly intact; no facial asymmetry, power and sensation grossly intact. LYMPHATICS: No lymph nodes palpable in the axilla and neck INVESTIGATIONS, reviewed in the clinical context: September 14: Potassium 4.2 creatinine 0.93 proBNP 3780 2-D echocardiogram: Moderate global hypokinesis. EF 20-25% WBC 11 hemoglobin 15.5 platelets 345 potassium 4.9 creatinine 0.7 to ProBNP 4810 Urine drug screen positive for amphetamines, methamphetamines, cocaine Coronavirus [PCL] not detected EKG tracing personally reviewed by me-normal sinus rhythm, prolonged QT Chest x-ray film: Interstitial prominence Computed tomography scan chest and U for PE protocol: No PE. Mild to moderate patchy opacities predominantly to bilateral frontal lobes, moderate pleural effusion Assessment and plan: -Acute congestive heart failure exacerbation, from systolic dysfunction EF 20- 25%. Cause unknown-improving Continue IV Lasix. Add Aldactone. LUDWIN inhibitor. -GERD Pepcid -Hyperlipidemia Continue Lipitor -Essential hypertension On Toprol-XL -Chronic Coumadin dependency smoker Nicotine patch -Urine drug screen positive for amphetamines, methamphetamines, cocaine We will address this with the patient -Prolonged QT interval Telemetry Continue IV Lasix. Add Aldactone and LUDWIN inhibitor. Discussed with patient. P atient probably need a cardiac catheterization., At some point
[2020-09-14] MEDS: LOSARTAN 25 MG TAB PO SCH (19:59)
[2020-09-14] MEDS: ENOXAPARIN 40 MG/0.4 ML SYRINGE SQ SCH (19:59)
[2020-09-15] MEDS: FUROSEMIDE 10 MG/ML 4 ML VIAL IV SCH (06:29)
[2020-09-15 06:46] LABS: Calcium 9.8 mg/dL (8.4-10.2); Potassium 4.7 mmol/L (3.5-5.1)
[2020-09-15] MEDS: ATORVASTATIN 20 MG TAB PO SCH (08:43)
[2020-09-15] MEDS: SPIRONOLACTONE 25 MG TAB PO SCH (08:44)
[2020-09-15] MEDS: METOPROLOL SUCCINATE (ER) 50 MG TAB.ER.24H PO SCH (08:44)
--- NOTE | 2020-09-15 12:25 | P.PN ---
Subjective Progress Note Date: 09/15/20 HISTORY OF PRESENT ILLNESS: This is a 50-year-old male with a past medical history significant for hypertension, hyperlipidemia, nicotine dependence, anxiety, depression, bipolar disorder, methamphetamine use, and cocaine use. Patient does not follow with a major gifts officer. We have been asked to see the patient in consultation for acute pulmonary edema. Patient examined at the bedside. Patient states he has been feeling short of breath for the past week. 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 He states over the past couple days the shortness of breath has been constant. He denies chest pain or pressure. Patient reports using methamphetamine and cocaine 3 days ago. He states he used to this because he was so short of breath and had to go to work so he said he used drugs so he could work without noticing he was short of br eath. Patient also reports smoking 1 pack per day. He denies any previous cardiac history. Patient was found to be in congestive heart failure and was started on IV Lasix in the emergency room. At the time of examination this morning, the patient denies any shortness of breath. EKG reveals sinus mechanism without signs of acute ischemia. QT prolongation. Chest xray findings consistent with CHF exacerbation and/or fluid overload state. Chest CTA: Negative for pulmonary, some. Mild to moderate patchy opacities predominantly in the bilateral frontal lobes concerning for atypical pneumonia. Moderate pleural effusions on background of CHF. Laboratory data: WBC 11.0. Hemoglobin 15.5. Platelet count 345. D-dimer 0.97. Sodium 140. Potassium 4.2. BUN 15. Creatinine 0.93. Troponin negative 1. BNP 4810. Toxicology screen positive for amphetamines, methamphetamines, and cocaine. Current home cardiac medications include metoprolol succinate 50 mg daily and Lipitor 20 mg daily 09/15/2020 Patient examined this morning the bedside. Patient denies chest pain or pressure. He denies shortness of breath. Echocardiogram completed reveals ejection fraction 20-25%. Patient remains on IV Lasix. Creatinine 1.29. BUN 27. PHYSICAL EXAM: VITAL SIGNS: Reviewed. GENERAL: Well-developed in no acute distress. HEENT: Head is normocephalic. Pupils are equal, round. Sclerae anicteric. Mucous membranes of the mouth are moist. Neck supple. No JVD or thyromegaly LUNGS: Respirations even and unlabored. Lungs essentially clear to auscultation bilaterally. HEART: Regular rate and rhythm. S1 and S2 heard. ABDOMEN: Soft. Nondistended. Nontender. EXTREMITIES: Normal range of motion. No clubbing or cyanosis. Peripheral pulses intact. No lower extremity edema NEUROLOGIC: Awake and alert. Oriented x 3. ASSESSMENT: New-onset systolic heart failure cardiomyopathy, ejection fraction 20%, type unknown Hypertension Hyperlipidemia QT prolongation, secondary to methamphetamine use Nicotine dependence Methamphetamine use Cocaine use Anxiety Bipolar Depression PLAN: Discontinue IV Lasix Begin oral Lasix 40 mg daily Monitor kidney function Continue Aldactone, Toprol-XL, and Cozaar Patient will require cardiac catheterization to rule out CAD. Timing to be determined. Smoking cessation recommended Recommend abstinence from cocaine and methamphetamines Further recommendations pending patient course Nurse practitioner note has been reviewed by physician. Signing provider agrees with the documented findings, assessment, and plan of care. Objective - Vital Signs Vital signs: Vital Signs Temp 97.8 F 09/15/20 08:40 Pulse 86 09/15/20 08:40 Resp 18 09/15/20 08:40 BP 128/92 09/15/20 08:40 Pulse Ox 97 09/15/20 08:40 Intake & Output 09/14/20 09/15/20 09/15/20 18:59 06:59 18:59 Intake Total 480 240 236 Balance 480 240 236 Weight 83.5 kg 82.8 kg Intake: Oral 480 240 236 Other: Voiding Method Urinal Urinal - Labs CBC & Chem 7: 09/13/20 12:59 09/15/20 06:20 Labs: Abnormal Lab Results - Last 24 Hours (Table) 09/15/20 Range/Units 06:20 Carbon Dioxide 32 H (22-30) mmol/L BUN 27 H (9-20) mg/dL Creatinine 1.29 H (0.66-1.25) mg/dL Glucose 136 H (74-99) mg/dL
--- NOTE | 2020-09-15 15:40 | P.PN ---
Progress Note - Text Progress Note Date: 09/15/20 Chief Complaint: short of breath History of presenting complaint: This is a pleasant [address] An. Chronic stable medical conditions include GERD, hypertension, hyperlipidemia. For a few days patient has been noting Zerit been getting short of breath. Also complains of some chest pressure. Middle of the chest going out of the left side of the chest fall. Associate with some perspiration and tiredness. As symptoms were getting worse patient decided to come in. No prior cardiac history. Admitted with CHF exacerbation. EF 20-25% Started on IV Lasix. Today: Breathing improving. On IV Lasix. Oral intake better. Review of systems: Was done for constitutional, cardiovascular, GI, pulmonary. relevant finding as above Active Medications Atorvastatin Calcium (Atorvastatin 20 Mg Tab) 20 mg PO DAILY [facility] Last Admin: 09/15/20 08:43 Dose: 20 mg Documented by: Enoxaparin Sodium (Enoxaparin 40 Mg/0.4 Ml Syringe) 40 mg SQ DAILY@2100 [facility] Last Admin: 09/14/20 19:59 Dose: 40 mg Documented by: Furosemide (Furosemide 40 Mg Tab) 40 mg PO DAILY [facility] Ibuprofen (Ibuprofen 600 Mg Tab) 600 mg PO Q8HR PRN PRN Reason: Pain Losartan Potassium (Losartan 25 Mg Tab) 25 mg PO HS [facility] Last Admin: 09/14/20 19:59 Dose: 25 mg Documented by: Metoprolol Succinate (Metoprolol Succinate (Er) 50 Mg Tab.Er.24h) 50 mg PO DAILY [facility] Last Admin: 09/15/20 08:44 Dose: 50 mg Documented by: Spironolactone (Spironolactone 25 Mg Tab) 25 mg PO DAILY [facility] Last Admin: 09/15/20 08:44 Dose: 25 mg Documented by: Past medical history to include: GERD, hypertension, hyperlipidemia, bipolar disorder Social history: Lives with 2 friends. Smokes half a pack a day for long time. Did cy before. No alcohol. Physical examination: VITAL SIGNS: 97.6, 72, 16, 1 29 x 87, 96% room air GENERAL: Laying in bed, comfortable EYES: Pupils equal. Conjunctiva normal. HEENT: External appearance of nose and ears normal, oral cavity grossly normal. NECK: JVD not raised; masses not palpable. HEART: First and second heart sounds are normal; no edema. LUNGS: Respiratory rate normal; clear to auscultation. ABDOMEN: Soft, nontender, liver spleen not palpable, no masses palpable. PSYCH: [Alert and oriented x3; mood and affect anxious . INVESTIGATIONS, reviewed in the clinical context: September 15: Potassium 4.7 creatinine 1.29 September 14: Potassium 4.2 creatinine 0.93 proBNP 3780 2-D echocardiogram: Moderate global hypokinesis. EF 20-25% WBC 11 hemoglobin 15.5 platelets 345 potassium 4.9 creatinine 0.7 to ProBNP 4810 Urine drug screen positive for amphetamines, methamphetamines, cocaine Coronavirus [PCL] not detected EKG tracing personally reviewed by me-normal sinus rhythm, prolonged QT Chest x-ray film: Interstitial prominence Computed tomography scan chest and U for PE protocol: No PE. Mild to moderate patchy opacities predominantly to bilateral frontal lobes, moderate pleural effusion Assessment and plan: -Acute congestive heart failure exacerbation, from systolic dysfunction EF 20- 25%. Patient will need a cardiac catheterization at some point IV Lasix-changed to by mouth Lasix. Aldactone. LUDWIN inhibitor. -GERD Pepcid -Hyperlipidemia Continue Lipitor -Essential hypertension On Toprol-XL -Chronic Coumadin dependency smoker Nicotine patch -Urine drug screen positive for amphetamines, methamphetamines, cocaine We will address this with the patient -Prolonged QT interval Telemetry -Acute kidney injury, prerenal from diuresis Follow renal function IV Lasix discontinued. need a cardiac catheterization., Place on oral Lasix. Repeat labs
[2020-09-15] MEDS: ENOXAPARIN 40 MG/0.4 ML SYRINGE SQ SCH (20:17)
[2020-09-15] MEDS: LOSARTAN 25 MG TAB PO SCH (20:17)
[2020-09-16 07:37] LABS: Calcium 9.7 mg/dL (8.4-10.2); Potassium 5.4 mmol/L (3.5-5.1)
[2020-09-16] MEDS: FUROSEMIDE 40 MG TAB PO SCH (09:15)
[2020-09-16] MEDS: METOPROLOL SUCCINATE (ER) 50 MG TAB.ER.24H PO SCH (09:15)
[2020-09-16] MEDS: SPIRONOLACTONE 25 MG TAB PO SCH (09:15)
[2020-09-16] MEDS: ATORVASTATIN 20 MG TAB PO SCH (09:15)
[2020-09-16] MEDS ORDERED: NITROGLYCERIN SL TABS 0.4 MG TAB SUBLINGUAL PRN (09:52)
[2020-09-16] MEDS ORDERED: ALPRAZolam 0.25 MG TAB PO PRN (09:52)
--- NOTE | 2020-09-16 10:26 | P.PN ---
Subjective Progress Note Date: 09/16/20 HISTORY OF PRESENT ILLNESS: This is a 50-year-old male with a past medical history significant for hypertension, hyperlipidemia, nicotine dependence, anxiety, depression, bipolar disorder, methamphetamine use, and cocaine use. 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 We have been asked to see the patient in consultation for acute pulmonary edema. Patient examined at the bedside. Patient states he has been feeling short of breath for the past week. 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 He states over the past couple days the shortness of breath has been constant. He denies chest pain or pressure. Patient reports using methamphetamine and cocaine 3 days ago. He states he used to this because he was so short of breath and had to go to work so he said he used drugs so he could work without noticing he was short of br eath. Patient also reports smoking 1 pack per day. He denies any previous cardiac history. Patient was found to be in congestive heart failure and was started on IV Lasix in the emergency room. At the time of examination this morning, the patient denies any shortness of breath. EKG reveals sinus mechanism without signs of acute ischemia. QT prolongation. Chest xray findings consistent with CHF exacerbation and/or fluid overload state. Chest CTA: Negative for pulmonary, some. Mild to moderate patchy opacities predominantly in the bilateral frontal lobes concerning for atypical pneumonia. Moderate pleural effusions on background of CHF. Laboratory data: WBC 11.0. Hemoglobin 15.5. Platelet count 345. D-dimer 0.97. Sodium 140. Potassium 4.2. BUN 15. Creatinine 0.93. Troponin negative 1. BNP 4810. Toxicology screen positive for amphetamines, methamphetamines, and cocaine. Current home cardiac medications include metoprolol succinate 50 mg daily and Lipitor 20 mg daily 09/15/2020 Patient examined this morning the bedside. Patient denies chest pain or pressure. He denies shortness of breath. Echocardiogram completed reveals ejection fraction 20-25%. Patient remains on IV Lasix. Creatinine 1.29. BUN 27. 09/16/2020 Patient examined this point the bedside. Patient has been transitioned over to oral Lasix. He denies shortness of breath. Denies chest pain or pressure. Patient's potassium 5.4. BUN 25. Creatinine 1.15. PHYSICAL EXAM: VITAL SIGNS: Reviewed. GENERAL: Well-developed in no acute distress. HEENT: Head is normocephalic. Pupils are equal, round. Sclerae anicteric. Mucous membranes of the mouth are moist. Neck supple. No JVD or thyromegaly LUNGS: Respirations even and unlabored. Lungs essentially clear to auscultation bilaterally. HEART: Regular rate and rhythm. S1 and S2 heard. ABDOMEN: Soft. Nondistended. Nontender. EXTREMITIES: Normal range of motion. No clubbing or cyanosis. Peripheral p ulses intact. No lower extremity edema NEUROLOGIC: Awake and alert. Oriented x 3. ASSESSMENT: New-onset systolic heart failure, currently euvolemic Cardiomyopathy, ejection fraction 20%, type unknown Hypertension Hyperlipidemia QT prolongation, secondary to methamphetamine use Nicotine dependence Methamphetamine use Cocaine use Anxiety Bipolar Depression Hyperkalemia PLAN: Continue current cardiac medications including oral Lasix, metoprolol succinate, and Cozaar Discontinue Aldactone Monitor potassium Smoking cessation recommended Recommend abstinence from cocaine and methamphetamines Patient to undergo cardiac catheterization tomorrow with Dr. Salazar to rule out CAD Further recommendations pending patient course Nurse practitioner note has been reviewed by physician. Signing provider agrees with the documented findings, assessment, and plan of care. Objective - Vital Signs Vital signs: Vital Signs Temp 98.0 F 09/16/20 09:11 Pulse 86 09/16/20 09:11 Resp 16 09/16/20 09:11 BP 126/87 09/16/20 09:11 Pulse Ox 98 09/16/20 09:11 Intake & Output 09/15/20 09/16/20 09/16/20 18:59 06:59 18:59 Intake Total 472 236 Balance 472 236 Weight 82.6 kg Intake: Oral 472 236 Other: Voiding Method Urinal Urinal - Labs CBC & Chem 7: 09/13/20 12:59 09/16/20 06:43 Labs: Abnormal Lab Results - Last 24 Hours (Table) 09/16/20 Range/Units 06:43 Potassium 5.4 H (3.5-5.1) mmol/L BUN 25 H (9-20) mg/dL Glucose 122 H (74-99) mg/dL
[2020-09-16] MEDS: ENOXAPARIN 40 MG/0.4 ML SYRINGE SQ SCH (20:00)
[2020-09-16] MEDS: LOSARTAN 25 MG TAB PO SCH (20:00)
[2020-09-16] MEDS ORDERED: SODIUM POLYSTYRENE SULFONATE 15 GM/60 ML BOTTLE PO STA (22:07)
--- NOTE | 2020-09-16 22:09 | P.PN ---
Progress Note - Text Progress Note Date: 09/16/20 Chief Complaint: short of breath History of presenting complaint: This is a pleasant [address] An. Chronic stable medical conditions include GERD, hypertension, hyperlipidemia. For a few days patient has been noting Zerit been getting short of breath. Also complains of some chest pressure. Middle of the chest going out of the left side of the chest fall. Associate with some perspiration and tiredness. As symptoms were getting worse patient decided to come in. No prior cardiac history. Admitted with CHF exacerbation. EF 20-25% Started on IV Lasix. Responded. Today: Breathing better. On oral Lasix. Laying in bed. Review of systems: Was done for constitutional, cardiovascular, GI, pulmonary. relevant finding as above Active Medications Alprazolam (Alprazolam 0.25 Mg Tab) 0.25 mg PO Q6HR PRN PRN Reason: Mild Anxiety Alprazolam (Alprazolam 0.5 Mg Tab) 0.5 mg PO Q6HR PRN PRN Reason: Moderate Anxiety Aspirin (Aspirin 325 Mg Tab) 325 mg PO ONCE ONE Stop: 09/17/20 07:01 Atorvastatin Calcium (Atorvastatin 20 Mg Tab) 20 mg PO DAILY [facility] Last Admin: 09/16/20 09:15 Dose: 20 mg Documented by: Atorvastatin Calcium (Atorvastatin 80 Mg Tab) 80 mg PO ONCE ONE Stop: 09/17/20 07:01 Enoxaparin Sodium (Enoxaparin 40 Mg/0.4 Ml Syringe) 40 mg SQ DAILY@2100 [facility] Last Admin: 09/16/20 20:00 Dose: 40 mg Documented by: Furosemide (Furosemide 40 Mg Tab) 40 mg PO DAILY [facility] Last Admin: 09/16/20 09:15 Dose: 40 mg Documented by: Sodium Chloride 1,000 ml/ IV (Solution) 1,000 mls @ 82.6 mls/hr IV .Q12H7M ONE Stop: 09/17/20 11:36 Heparin Sodium (Porcine) 10, (000 unit/ Sodium Chloride) 1,001 mls @ 999 mls/hr IRRIGATION ONCE PRN PRN Reason: INTRA-OP Stop: 09/17/20 23:00 Heparin Sodium (Porcine) 2,500 (unit/ Sodium Chloride) 250.5 mls @ 250 mls/hr IRRIGATION ONCE PRN PRN Reason: INTRA-OP Stop: 09/17/20 23:00 Ibuprofen (Ibuprofen 600 Mg Tab) 600 mg PO Q8HR PRN PRN Reason: Pain Losartan Potassium (Losartan 25 Mg Tab) 25 mg PO HS [facility] Last Admin: 09/16/20 20:00 Dose: 25 mg Documented by: Metoprolol Succinate (Metoprolol Succinate (Er) 50 Mg Tab.Er.24h) 50 mg PO DAILY [facility] Last Admin: 09/16/20 09:15 Dose: 50 mg Documented by: Nitroglycerin (Nitroglycerin Sl Tabs 0.4 Mg Tab) 0.4 mg SUBLINGUAL Q5M PRN PRN Reason: Chest Pain Past medical history to include: GERD, hypertension, hyperlipidemia, bipolar disorder Social history: Lives with 2 friends. Smokes half a pack a day for long time. Did cy before. No alcohol. Physical examination: VITAL SIGNS: 98.2, 85, 16, 133/91, 95% room air GENERAL: Laying in bed, comfortable EYES: Pupils equal. Conjunctiva normal. HEENT: External appearance of nose and ears normal, oral cavity grossly normal. NECK: JVD not raised; masses not palpable. HEART: First and second heart sounds are normal; no edema. LUNGS: Respiratory rate normal; clear to auscultation. ABDOMEN: Soft, nontender, liver spleen not palpable, no masses palpable. PSYCH: [Alert and oriented x3; mood and affect anxious . INVESTIGATIONS, reviewed in the clinical context: September 16: Potassium 5.4 creatinine 1.15 September 15: Potassium 4.7 creatinine 1.29 September 14: Potassium 4.2 creatinine 0.93 proBNP 3780 2-D echocardiogram: Moderate global hypokinesis. EF 20-25% WBC 11 hemoglobin 15.5 platelets 345 potassium 4.9 creatinine 0.7 to ProBNP 4810 Urine drug screen positive for amphetamines, methamphetamines, cocaine Coronavirus [PCL] not detected EKG tracing personally reviewed by me-normal sinus rhythm, prolonged QT Chest x-ray film: Interstitial prominence Computed tomography scan chest and U for PE protocol: No PE. Mild to moderate patchy opacities predominantly to bilateral frontal lobes, moderate pleural effusion Assessment and plan: -Acute congestive heart failure exacerbation, from systolic dysfunction EF 20- 25%. Patient will need a cardiac catheterization at some point IV Lasix-changed to by mouth Lasix. Aldactone. LUDWIN inhibitor. -GERD Pepcid -Hyperlipidemia Continue Lipitor -Essential hypertension On Toprol-XL -Chronic Coumadin dependency smoker Nicotine patch -Urine drug screen positive for amphetamines, methamphetamines, cocaine We will address this with the patient -Prolonged QT interval Telemetry -Acute kidney injury, prerenal from diuresis Follow renal function -Hyperkalemia. Give Kayexalate. Aldactone held. Hold Aldactone. Give Kayexalate. Patient's pending a cardiac catheterization tomorrow.
[2020-09-16] MEDS ORDERED: SODIUM CHLORIDE 0.9% 1,000 ML in EMPTY BAG 1 BAG IV ONE (23:30)
[2020-09-17] MEDS: FUROSEMIDE 40 MG TAB PO SCH (05:30)
[2020-09-17] MEDS: ATORVASTATIN 20 MG TAB PO SCH (05:30)
[2020-09-17] MEDS: METOPROLOL SUCCINATE (ER) 50 MG TAB.ER.24H PO SCH (06:09)
[2020-09-17] MEDS ORDERED: ASPIRIN 325 MG TAB PO ONE (07:00)
[2020-09-17] MEDS ORDERED: ATORVASTATIN 80 MG TAB PO ONE (07:00)
[2020-09-17] MEDS ORDERED: HEPARIN SODIUM,PORCINE 2,500 UNIT in SODIUM CHLORIDE 0.9% 250 ML IRRIGATION PRN (07:00)
[2020-09-17] MEDS ORDERED: HEPARIN SODIUM,PORCINE 10,000 UNIT in SODIUM CHLORIDE 0.9% 1,000 ML IRRIGATION PRN (07:00)
[2020-09-17 08:17] LABS: Calcium 9.1 mg/dL (8.4-10.2); Potassium 5.4 mmol/L (3.5-5.1)
[2020-09-17] MEDS ORDERED: IV FLUID CONTINUATION 1,000 ML IV ONE (12:59)
[2020-09-17] MEDS ORDERED: MIDAZOLAM 2 MG/2 ML VIAL IV ONE (13:11)
[2020-09-17] MEDS ORDERED: LIDOCAINE 1% INJ 10MG/ML (20 ML MDV) SQ ONE (13:15)
[2020-09-17] MEDS ORDERED: VERAPAMIL SYRINGE (5 MG/10 ML) INTRAARTER ONE (13:18)
[2020-09-17] MEDS ORDERED: IOPAMIDOL-370 125ML BTL INJ ONE (13:31)
[2020-09-17] MEDS ORDERED: RX INFO: IV CONTRAST WAS GIVEN 1 EACH MISC MISCELLANE PRN (13:32)
[2020-09-17] MEDS ORDERED: NITROGLYCERIN SL TABS 0.4 MG TAB SUBLINGUAL PRN (13:32)
[2020-09-17] MEDS ORDERED: SODIUM CHLORIDE 0.9% 1,000 ML IV SCH (13:45)
--- NOTE | 2020-09-17 14:00 | CC ---
CARDIAC CATHETERIZATION REPORT DATE OF SERVICE: September 17, 2020. PERFORMING PHYSICIAN: Fady Salazar MD. PROCEDURE PERFORMED: 1. Selective right and left coronary angiogram. 2. Left heart catheterization. INDICATION: Newly diagnosis cardiomyopathy. COMPLICATION: None. LEVEL OF SEDATION: Moderate with sedation length of 12 minutes. PROCEDURE DESCRIPTION: After obtaining informed consent, the patient was brought to the cardiac quality lab assoc. The right radial artery was cannulated using micropuncture technique and a micropuncture wire passed easily then I placed a 6-[place] sheath. I gave the patient 2 mg of verapamil IA and 8000 units of heparin IV. Selective right and left coronary angiogram performed using JR4 and JL3.5 catheters. Left heart catheterization was performed using the JR4 catheter which crossed the aortic valve. The procedure was completed without any complication. SELECTIVE CORONARY ANGIOGRAM: 1. The RCA is a large caliber vessel. It is a dominant vessel, appeared to be angiographically normal. It distally bifurcates into PDA and PLV branches, both appeared to be angiographically normal. 2. The left main is angiographically normal. It bifurcates into LCX and LAD. 3. The LCX is a large caliber vessel it is a nondominant vessel. The LCX is angiographically normal. It gives rise into first and second obtuse marginal branches, both appeared to be angiographically normal. 4. The LAD: The proximal LAD is angiographically normal. It gives rise into the first and second diagonal branches both appeared to be angiographically normal. The LAD distally appeared to be normal and the midportion appeared to be normal as well. HEMODYNAMICS: The LVEDP was 30 mmHg without gradient across aortic valve. CONCLUSION: 1. Normal coronary angiogram. 2. Elevated filling pressures with EDP of 30 mmHg. POSTPROCEDURE MANAGEMENT: 1. Medical treatment. 2. Put the patient back on IV Lasix. 3. Follow up with the patient. MMODL / IJN: [id number] /
[2020-09-17] MEDS: ALPRAZolam 0.5 MG TAB PO PRN ×2 (14:36→19:51)
[2020-09-17] MEDS: FUROSEMIDE 10 MG/ML 4 ML VIAL IV SCH ×2 (17:52→23:44)
--- NOTE | 2020-09-17 17:53 | P.PN ---
Progress Note - Text Progress Note Date: 09/17/20 Chief Complaint: short of breath History of presenting complaint: This is a pleasant [address] An. Chronic stable medical conditions include GERD, hypertension, hyperlipidemia. For a few days patient has been noting Zerit been getting short of breath. Also complains of some chest pressure. Middle of the chest going out of the left side of the chest fall. Associate with some perspiration and tiredness. As symptoms were getting worse patient decided to come in. No prior cardiac history. Admitted with CHF exacerbation. EF 20-25% Started on IV Lasix. Responded. Today: Patient was scheduled for cardiac catheterization earlier today. Patient refuses same as he wanted to go home. I came in patient's sitting with his girlfriend. Had a very lengthy talk with the patient at the girlfriend regarding the importance of getting it done. Patient is finally is agreed to get it done. Is also concerned about being nothing by mouth for the procedure. Did discuss the importance of the same in the context of the procedure.Was informed that patient not ready to proceed with cardiac catheterization. Review of systems: Was done for constitutional, cardiovascular, GI, pulmonary. relevant finding as above Active Medications Alprazolam (Alprazolam 0.25 Mg Tab) 0.25 mg PO Q6HR PRN PRN Reason: Mild Anxiety Alprazolam (Alprazolam 0.5 Mg Tab) 0.5 mg PO Q6HR PRN PRN Reason: Moderate Anxiety Last Admin: 09/17/20 14:36 Dose: 0.5 mg Documented by: Atorvastatin Calcium (Atorvastatin 20 Mg Tab) 20 mg PO DAILY [facility] Last Admin: 09/17/20 05:30 Dose: Not Given Documented by: Enoxaparin Sodium (Enoxaparin 40 Mg/0.4 Ml Syringe) 40 mg SQ DAILY@2100 [facility] Last Admin: 09/16/20 20:00 Dose: 40 mg Documented by: Furosemide (Furosemide 10 Mg/Ml 4 Ml Vial) 40 mg IV Q8HR [facility] Heparin Sodium (Porcine) 10, (000 unit/ Sodium Chloride) 1,001 mls @ 999 mls/hr IRRIGATION ONCE PRN PRN Reason: INTRA-OP Stop: 09/17/20 23:00 Heparin Sodium (Porcine) 2,500 (unit/ Sodium Chloride) 250.5 mls @ 250 mls/hr IRRIGATION ONCE PRN PRN Reason: INTRA-OP Stop: 09/17/20 23:00 Ibuprofen (Ibuprofen 600 Mg Tab) 600 mg PO Q8HR PRN PRN Reason: Pain Losartan Potassium (Losartan 25 Mg Tab) 25 mg PO HS [facility] Last Admin: 09/16/20 20:00 Dose: 25 mg Documented by: Metoprolol Succinate (Metoprolol Succinate (Er) 50 Mg Tab.Er.24h) 50 mg PO DAILY [facility] Last Admin: 09/17/20 06:09 Dose: 50 mg Documented by: Miscellaneous Information (Rx Info: Iv Contrast Was Given 1 Each Misc) 1 each MISCELLANE DAILY PRN PRN Reason: Per Protocol Stop: 09/19/20 13:32 Nitroglycerin (Nitroglycerin Sl Tabs 0.4 Mg Tab) 0.4 mg SUBLINGUAL Q5M PRN PRN Reason: Chest Pain Past medical history to include: GERD, hypertension, hyperlipidemia, bipolar disorder Social history: Lives with 2 friends. Smokes half a pack a day for long time. Did cy before. No alcohol. Physical examination: VITAL SIGNS: 79, 18, 129/82, 98% on room air GENERAL: Sitting up in a chair, comfortable EYES: Pupils equal. Conjunctiva normal. HEENT: External appearance of nose and ears normal, oral cavity grossly normal. NECK: JVD not raised; masses not palpable. HEART: First and second heart sounds are normal; no edema. LUNGS: Respiratory rate normal; clear to auscultation. ABDOMEN: Soft, nontender, liver spleen not palpable, no masses palpable. PSYCH: [Alert and oriented x3; mood and affect anxious . INVESTIGATIONS, reviewed in the clinical context: September 17: Potassium 5.4 creatinine 1.21 September 16: Potassium 5.4 creatinine 1.15 September 15: Potassium 4.7 creatinine 1.29 September 14: Potassium 4.2 creatinine 0.93 proBNP 3780 2-D echocardiogram: Moderate global hypokinesis. EF 20-25% WBC 11 hemoglobin 15.5 platelets 345 potassium 4.9 creatinine 0.7 to ProBNP 4810 Urine drug screen positive for amphetamines, methamphetamines, cocaine Coronavirus [PCL] not detected EKG tracing personally reviewed by me-normal sinus rhythm, prolonged QT Chest x-ray film: Interstitial prominence Computed tomography scan chest and U for PE protocol: No PE. Mild to moderate patchy opacities predominantly to bilateral frontal lobes, moderate pleural effusion Assessment and plan: -Acute congestive heart failure exacerbation, from systolic dysfunction EF 20-25 %. Pending cardiac catheterization.-Stable IV Lasix-changed to by mouth Lasix. Aldactone. LUDWIN inhibitor. -GERD Pepcid -Hyperlipidemia Continue Lipitor -Essential hypertension On Toprol-XL -Chronic nicotine dependency smoker Nicotine patch -Urine drug screen positive for amphetamines, methamphetamines, cocaine Discussed with the patient -Prolonged QT interval Telemetry -Acute kidney injury, prerenal from diuresis Follow renal function -Hyperkalemia. Give Kayexalate. Aldactone held. Repeat Kayexalate. Repeat BMP. Discussion as above. Total time spent today about 45 minutes with over 25 minutes of discussion. Cardiac catheterization today or tomorrow depending up next slot available.
[2020-09-17] MEDS: ENOXAPARIN 40 MG/0.4 ML SYRINGE SQ SCH (19:51)
[2020-09-17] MEDS: LOSARTAN 25 MG TAB PO SCH (19:51)
[2020-09-18 08:20] LABS: African American GFR (CKD) >90 (>60 ml/min/1.73 sqM); Non-African American GFR(CKD) 86 (>60 ml/min/1.73 sqM)
[2020-09-18 08:28] VITALS: TEMP 96.9
[2020-09-18] MEDS: METOPROLOL SUCCINATE (ER) 50 MG TAB.ER.24H PO SCH (08:42)
[2020-09-18] MEDS: FUROSEMIDE 10 MG/ML 4 ML VIAL IV SCH (08:42)
[2020-09-18] MEDS: ATORVASTATIN 20 MG TAB PO SCH (08:42)
[2020-09-18 11:48] VITALS: BP 121/75; PULSE 75; RESP 16
--- NOTE | 2020-09-18 12:41 | P.PN ---
Subjective This is a pleasant 50-year-old male past medical history significant for hypertension, dyslipidemia, chronic nicotine dependence, illicit drug use and bipolar disorder. He is status post cardiac catheterization yesterday with Dr. Salazar revealing normal coronary arteries with elevated LVEDP of 30 mmHg. Currently maintained on atorvastatin 20 mg daily, Lasix 40 mg IV 3 times a day, losartan 25 mg daily and Toprol 50 mg daily. Blood pressure 121/75 heart rate 75 afebrile maintaining oxygen saturation on room air. He denies symptoms of chest pain, shortness of breath, dizziness or palpitations. 24-hour urine output is documented at 700 mL, doubt accuracy. Laboratory data reviewed, creatinine 1.01. GENERAL: Well-appearing, well-nourished and in no acute distress. NECK: Supple without JVD or thyromegaly. LUNGS: Breath sounds clear to auscultation bilaterally. Respiration equal and unlabored. No wheezes, rales or rhonchi. HEART: Regular rate and rhythm without murmurs, rubs or gallops. S1 and S2 heard. EXTREMITIES: Normal range of motion, no edema. No clubbing or cyanosis. Peripheral pulses intact. ASSESSMENT New onset systolic heart failure Nonischemic cardiomyopathy ejection fraction 20% Hypertension Dyslipidemia QT prolongation secondary to methamphetamine use Illicit drug use Hyperkalemia Chronic nicotine dependence Regular alcohol use PLAN Transition to oral diuretics. Stable for discharge from a cardiac perspective. Recommend illicit drug, alcohol and tobacco cessation. Follow up with Dr. Salazar in the office in 1 week. Nurse Practitioner note has been reviewed, I agree with a documented findings an d plan of care. Patient was seen and examined. Objective - Vital Signs Vital signs: Vital Signs Temp 96.9 F L 09/18/20 08:27 Pulse 81 09/18/20 08:27 Resp 20 09/18/20 08:27 BP 123/71 09/18/20 08:27 Pulse Ox 96 09/18/20 08:27 Intake & Output 09/17/20 09/18/20 09/18/20 18:59 06:59 18:59 Intake Total 710 240 Output Total 700 Balance 710 -700 240 Weight 85 kg Intake: IV 50 Oral 660 240 Output: Urine 700 Other: Voiding Method Urinal Toilet Toilet Urinal Urinal # Voids 1 - Labs CBC & Chem 7: 09/13/20 12:59 09/18/20 07:53
[2020-09-18] MEDS ORDERED: FUROSEMIDE 40 MG TAB PO SCH (16:00)
--- NOTE | 2020-09-18 16:44 | P.DS ---
Providers Date of admission: 09/13/20 14:27 Expected date of discharge: 09/18/20 Attending physician: Swapnil Rick Consults: 09/13/20 14:30 Consult Physician Urgent Consulting Provider: Luis A Bermeo Consult Reason/Comments: Acute pulmonary edema Do you want consulting provider notified?: Yes 09/17/20 13:32 Consult Physician Routine Consulting Provider: Luis A Bermeo Consult Reason/Comments: Post Interventional patient Do you want consulting provider notified?: Already Contacted Primary care physician: Tom An [facility] Course: Chief Complaint: short of breath History of presenting complaint: This is a pleasant [address] An. Chronic stable medical conditions include GERD, hypertension, hyperlipidemia. For a few days patient has been noting Zerit been getting short of breath. Also complains of some chest pressure. Middle of the chest going out of the left side of the chest fall. Associate with some perspiration and tiredness. As symptoms were getting worse patient decided to come in. No prior cardiac history. Admitted with CHF exacerbation. EF 20-25% Started on IV Lasix. Responded. Today: Patient underwent cardiac catheterization yesterday. Normal coronaries. Cardiomyopathy felt to be possible drug induced. Discussed with the patient importance of complete to refrain from recreational drugs. Cleared by currently for discharge. Consultation: Cardiology associates Past medical history to include: GERD, hypertension, hyperlipidemia, bipolar disorder Social history: Lives with 2 friends. Smokes half a pack a day for long time. Did cy before. No alcohol. Physical examination: VITAL SIGNS: 96.9, 81, 20, 123/71, 96% room air GENERAL: Sitting up in a chair, comfortable EYES: Pupils equal. Conjunctiva normal. HEENT: External appearance of nose and ears normal, oral cavity grossly normal. NECK: JVD not raised; masses not palpable. HEART: First and second heart sounds are normal; no edema. LUNGS: Respiratory rate normal; clear to auscultation. ABDOMEN: Soft, nontender, liver spleen not palpable, no masses palpable. PSYCH: [Alert and oriented x3; mood and affect anxious . INVESTIGATIONS, reviewed in the clinical context: September 17: Potassium 5.4 creatinine 1.21 September 16: Potassium 5.4 creatinine 1.15 September 15: Potassium 4.7 creatinine 1.September 14: Potassium 4.2 creatinine 0.93 proBNP 3780 2-D echocardiogram: Moderate global hypokinesis. EF 20-25% WBC 11 hemoglobin 15.5 platelets 345 potassium 4.9 creatinine 0.7 to ProBNP 4810 Urine drug screen positive for amphetamines, methamphetamines, cocaine Coronavirus [PCL] not detected EKG tracing personally reviewed by me-normal sinus rhythm, prolonged QT Chest x-ray film: Interstitial prominence Computed tomography scan chest and U for PE protocol: No PE. Mild to moderate patchy opacities predominantly to bilateral frontal lobes, moderate pleural effusion Assessment and plan: -Acute congestive heart failure exacerbation, from systolic dysfunction EF 20- 25%. Pending cardiac catheterization.-Stable IV Lasix-changed to by mouth Lasix. Aldactone. LUDWIN inhibitor. -GERD Pepcid -Hyperlipidemia Continue Lipitor -Essential hypertension On Toprol-XL -Chronic nicotine dependency smoker Nicotine patch -Urine drug screen positive for amphetamines, methamphetamines, cocaine Discussed with the patient -Prolonged QT interval Telemetry -Acute kidney injury, prerenal from diuresis-improved Follow renal function Disposition: Home Labs: Spoke to the charge nurse-Ana Maria.. BMP drawn tomorrow and results to be followed by PCP. Plan - Discharge Summary Discharge Rx Participant: No New Discharge Prescriptions: New Nitroglycerin Sl Tabs [Nitrostat] 0.4 mg SUBLINGUAL Q5M PRN #30 tab PRN Reason: Chest Pain Losartan [Cozaar] 25 mg PO HS #90 tab Furosemide [Lasix] 40 mg PO BID@0900,1600 #180 tab Continue Metoprolol Succinate [Toprol XL] 50 mg PO DAILY #90 tab Atorvastatin [Lipitor] 20 mg PO DAILY #30 tab Discontinued Ibuprofen [Motrin] 600 mg PO Q8HR PRN PRN Reason: Pain Discharge Medication List Atorvastatin [Lipitor] 20 mg PO DAILY #30 tab 09/18/20 [Rx] Furosemide [Lasix] 40 mg PO BID@0900,1600 #180 tab 09/18/20 [Rx] Losartan [Cozaar] 25 mg PO HS #90 tab 09/18/20 [Rx] Metoprolol Succinate [Toprol XL] 50 mg PO DAILY #90 tab 09/18/20 [Rx] Nitroglycerin Sl Tabs [Nitrostat] 0.4 mg SUBLINGUAL Q5M PRN #30 tab 09/18/20 [Rx] Follow up Appointment(s)/Referral(s): Tom An MD [Primary Care Provider] - 1-2 days (Please make appointment during normal business hours. ) Fady Salazar MD [STAFF PHYSICIAN] - 1 Week (Office will call you with appointment time & date. ) Patient Instructions/Handouts: Heart Failure (DC), Cocaine Abuse (DC), Methamphetamine Abuse (DC) Discharge Disposition: HOME SELF-CARE
== END 2020-09-18 13:51 | disposition home or self-care (01) | DRG 287 ==
LOC: EC 12:19 → 3SCARD 14:27
PROVIDERS: ADMIT Hospitalist; ATTEND Hospitalist
PROC: B2151ZZ Fluoroscopy of Left Heart using Low Osmolar Contrast (ICD-10-PCS; principal; 2020-09-17 07:30)
PROC: 4A023N7 Measurement of Cardiac Sampling and Pressure, Left Heart, Percutaneous Approach (ICD-10-PCS; principal; 2020-09-17 07:30)
PROC: B2111ZZ Fluoroscopy of Multiple Coronary Arteries using Low Osmolar Contrast (ICD-10-PCS; principal; 2020-09-17 07:30)
DX: I11.0 Hypertensive heart disease with heart failure (principal); N17.9 Acute kidney failure, unspecified; I50.23 Acute on chronic systolic (congestive) heart failure; F17.210 Nicotine dependence, cigarettes, uncomplicated; F31.9 Bipolar disorder, unspecified; F41.9 Anxiety disorder, unspecified; I42.8 Other cardiomyopathies; F15.10 Other stimulant abuse, uncomplicated; E78.00 Pure hypercholesterolemia, unspecified; E78.5 Hyperlipidemia, unspecified; F15.188 Other stimulant abuse with other stimulant-induced disorder; F14.10 Cocaine abuse, uncomplicated; I45.81 Long QT syndrome; E87.5 Hyperkalemia; T50.2X5A Adverse effect of carbonic-anhydrase inhibitors, benzothiadiazides and other diuretics, initial encounter; R79.1 Abnormal coagulation profile; Z71.51 Drug abuse counseling and surveillance of drug abuser; K21.9 Gastro-esophageal reflux disease without esophagitis; Z79.899 Other long term (current) drug therapy; Z82.49 Family history of ischemic heart disease and other diseases of the circulatory system; Z20.822 Contact with and (suspected) exposure to COVID-19; Z98.890 Other specified postprocedural states
CPT/HCPCS: 36415; 71046; 71275; 80048; 80053; 80306; 82565; 83605; 83690; 83735; 83880; 84484; 85025; 85379; 85610; 85730; 87635; 93005; 93306; 93458; 94760; 99291